=== PATIENT | male | born 1950 | race Caucasian/White ===

== ENCOUNTER 2019-11-22 13:32 | Emergency (ER) | payer MEDICARE ==
[~2019-11-22] VITALS: Ht 175.3 cm; Wt 70.0 kg
[~2019-11-22 13:32] MED LIST: LEVO250T23 PO
--- NOTE | 2019-11-22 14:00 | NUR ---
Pt brought in by marlo from [facility] after found with lacertation to forehead, & bilat arms. PT reports EOTH.
[2019-11-22] MEDS ORDERED: NEOSPORIN OINT. PKT 1 PACKET ONE (14:41)
--- NOTE | 2019-11-22 15:13 | NUR ---
COLLAR BASTER AT BEDSIDE FOR WOUND CARE.
--- NOTE | 2019-11-22 15:35 | NUR ---
PT TO IMAGING
--- NOTE | 2019-11-22 16:03 | NUR ---
PT BACK FROM IMAGING, RESTING IN BED.
[2019-11-22] MEDS ORDERED: LIDOCAINE 1%, 10ML INFIL ONE (16:30)
[2019-11-22] MEDS ORDERED: LIDOCAINE-MPF 1%, 5ML ONE (16:38)
--- NOTE | 2019-11-22 16:39 | NUR ---
RANGEL Veloz at bedside for suture placement
[2019-11-22 17:31] VITALS: BP 160/75
--- NOTE | 2019-11-22 17:32 | NUR ---
POC AND DISCHARGE INSTRUCTIONS REVIEWED
== END 2019-11-22 18:00 | disposition home or self-care (01) ==
LOC: ED 17:19
DX: S01.81XA Laceration without foreign body of other part of head, initial encounter (principal); S80.212A Abrasion, left knee, initial encounter; S80.211A Abrasion, right knee, initial encounter; S50.312A Abrasion of left elbow, initial encounter; S50.311A Abrasion of right elbow, initial encounter; S09.90XA Unspecified injury of head, initial encounter; F10.120 Alcohol abuse with intoxication, uncomplicated; Y04.0XXA Assault by unarmed brawl or fight, initial encounter; Y93.89 Activity, other specified; Y92.410 Unspecified street and highway as the place of occurrence of the external cause; Y99.8 Other external cause status; Y90.9 Presence of alcohol in blood, level not specified
CPT/HCPCS: 12013; 70450; 72110; 72125; 99285

== ENCOUNTER 2019-12-02 12:14 | Emergency (ER) | payer MEDICARE ==
[~2019-12-02] VITALS: Ht 175.3 cm; Wt 63.6 kg
[2019-12-02 12:22] VITALS: BP 148/85
--- NOTE | 2019-12-02 13:03 | NUR ---
Patient/Caregiver given discharge instructions and they have confirmed that they understand the instructions. Patient ambulatory with steady gait.
== END 2019-12-02 13:04 | disposition home or self-care (01) ==
LOC: ED 12:50
DX: S01.81XD Laceration without foreign body of other part of head, subsequent encounter (principal); X58.XXXD Exposure to other specified factors, subsequent encounter
CPT/HCPCS: 99283

== ENCOUNTER 2020-04-08 17:01 | Inpatient (IN) | payer MEDICARE ==
[~2020-04-08] VITALS: Ht 175.3 cm; Wt 64.4 kg
[2020-04-08] MEDS ORDERED: ASPIRIN 81 MG TABLET CHEW PO ONE (17:30)
[2020-04-08 17:54] LABS: ALANINE AMINOTRANSFERASE 50 U/L (12-78); ALBUMIN 3.4 g/dL (3.4-5.0); ANION GAP 6 mmol/L (5-15); CALCIUM 8.3 mg/dL (8.5-10.1); CHLORIDE 106 mmol/L (98-107)
[2020-04-08 17:58] LABS: ALKALINE PHOSPHATASE 52 U/L (45-117); BILIRUBIN,TOTAL 0.8 mg/dL (0.2-1.0); TOTAL PROTEIN 7.4 g/dL (6.4-8.2); TROPONIN I < 0.015 ng/mL (0.000-0.045)
[2020-04-08] MEDS ORDERED: ACETAMINOPHEN 500 MG TABLET PO ONE (18:00)
--- NOTE | 2020-04-08 18:55 | NUR ---
BREAK RN: PT AT CT
[2020-04-08 19:29] LABS: MEAN CORPUSCULAR HEMOGLOBIN 31.3 pg (27.5-34.5); MEAN PLATELET VOLUME 7.4 fL (7.4-10.4); RED BLOOD COUNT 3.28 x10^6/uL (4.38-5.82); RED CELL DISTRIBUTION WIDTH 14.9 % (9.4-14.8)
[2020-04-08 19:30] LABS: MD YES; PLATELET COUNT 57 x10^3/uL (130-400)
[2020-04-08] MEDS ORDERED: ACETAMINOPHEN 500 MG TABLET ONE ×2 (19:34→20:00)
[2020-04-08] MEDS ORDERED: ASPIRIN 81 MG TABLET CHEW ONE (20:01)
[2020-04-08 20:15] LABS: BAND#(MANUAL) 0.21 x10^3/uL; BANDS%(MANUAL) 8 % (0-7); EOS#(MANUAL) 0.03 x10^3/uL (0.0-0.4); EOS% (MANUAL) 1 % (1-7); LYMPH#(MANUAL) 0.57 x10^3/uL (1-3.4); LYMPHS% (MANUAL) 22 % (22-44); MONOS#(MANUAL) 0.18 x10^3/uL (0.3-2.7); MONOS% (MANUAL) 7 % (2-9); SEG#(MANUAL) 1.61 x10^3/uL (1.8-6.8); SEGS% (MANUAL) 62 % (42-75)
[2020-04-08 20:16] LABS: <RBC MORPHOLOGY> NORMAL
[2020-04-08 20:19] LABS: <PLATELET ESTIMATE> DECREASED; <PLT MORPHOLOGY> NORMAL PLT MORPH
--- NOTE | 2020-04-08 20:55 | NUR ---
PT UP FOR ROADTEST, PT ABLE TO WALK WITHOUT ASSISTANCE HOWEVER PT REPORTS HE IS NOT ON HIS NORMAL STEADY GAIT, PT NOTED TO WOBBLE WHILE WALKING. VSS.
[2020-04-08] MEDS ORDERED: OMNIPAQUE 350 MG/ML, 75ML BOTTLE ONE (22:30)
--- NOTE | 2020-04-08 22:54 | NUR ---
REPORT TO JOSSELYN BETH.
[2020-04-08] MEDS ORDERED: CEFTRIAXONE PMX 1GM/50ML 50 ML IVPB ONE (23:00)
[2020-04-08] MEDS ORDERED: SODIUM CHLORIDE FLUSH 10ML SYR IVF PRN (23:00)
[2020-04-08] MEDS ORDERED: SODIUM CHLORIDE FLUSH 10ML SYR IVF ONE (23:00)
[2020-04-08] MEDS ORDERED: AZITHROMYCIN 500 MG in SODIUM CHLORIDE 0.9% 250 ML IVPB ONE (23:00)
[2020-04-08] MEDS ORDERED: CEFTRIAXONE PMX 1GM/50ML 50 ML ONE (23:32)
--- NOTE | 2020-04-09 00:45 | NUR ---
PT SLEEPING IN BED, PT ON MONITOR, PT VSS, PT MEDICATED PER EMAR
--- NOTE | 2020-04-09 01:56 | NUR ---
PT RESTING IN BED, PT ON MONITOR, PT VSS, PT MEDICATED PER EMAR
[2020-04-09] MEDS ORDERED: PHARMACY MAY ADJ FOR RENAL FX MC PRN (03:00)
[2020-04-09] MEDS ORDERED: ACETAMINOPHEN 325 MG TABLET PO PRN (03:00)
--- NOTE | 2020-04-09 03:43 | NUR ---
REPORT TO PAIGE
[2020-04-09 05:02] VITALS: BP 183/87
[2020-04-09] MEDS ORDERED: DEXAMETHASONE 1 MG TABLET PO SCH (07:30)
[2020-04-09] MEDS ORDERED: DEXAMETHASONE 4 MG TABLET ONE (08:28)
[2020-04-09] MEDS: ASCORBIC ACID 500 MG TABLET PO SCH ×2 (08:34→20:51)
[2020-04-09] MEDS: ZINC SULFATE 220 MG CAPSULE PO SCH (08:34)
[2020-04-09 08:57] LABS: D-DIMER 0.79 ug/mlFEU (0.00-0.52); INTERNATIONAL NORMALIZED RATIO 1.05 (0.93-1.1); PROTHROMBIN TIME 11.1 Seconds (9.6-11.5)
[2020-04-09 08:58] LABS: CALCIUM 8.1 mg/dL (8.5-10.1); CHLORIDE 108 mmol/L (98-107)
[2020-04-09 09:00] VITALS: BP 191/88
[2020-04-09 09:08] LABS: ALANINE AMINOTRANSFERASE 43 U/L (12-78); ALKALINE PHOSPHATASE 51 U/L (45-117); ANION GAP 3 mmol/L (5-15); BILIRUBIN,TOTAL 0.8 mg/dL (0.2-1.0); C-REACTIVE PROTEIN, QUANT 1.71 mg/dL (0.02-0.49); CREATINE KINASE, TOTAL 196 U/L (39-308); CREATININE 1.55 mg/dL (0.7-1.3); MEAN CORPUSCULAR HEMOGLOBIN 31.2 pg (27.5-34.5); MEAN CORPUSCULAR HGB CONC 33.8 g/dL (33.2-36.2); MEAN PLATELET VOLUME 7.6 fL (7.4-10.4); PLATELET COUNT 79 x10^3/uL (130-400); RED BLOOD COUNT 3.42 x10^6/uL (4.38-5.82); RED CELL DISTRIBUTION WIDTH 15.2 % (9.4-14.8); TOTAL PROTEIN 6.9 g/dL (6.4-8.2)
[2020-04-09 10:08] LABS: MD YES
[2020-04-09 10:22] LABS: <PLATELET ESTIMATE> DECREASED; <PLT MORPHOLOGY> NORMAL PLT MORPH; <RBC MORPHOLOGY> NORMAL; BAND#(MANUAL) 0.23 x10^3/uL; BANDS%(MANUAL) 12 % (0-7); BASOS#(MANUAL) 0.02 x10^3/uL (0-0.1); BASOS% (MANUAL) 1 % (0-1); LYMPH#(MANUAL) 0.49 x10^3/uL (1-3.4); LYMPHS% (MANUAL) 26 % (22-44); MONOS#(MANUAL) 0.15 x10^3/uL (0.3-2.7); MONOS% (MANUAL) 8 % (2-9); SEG#(MANUAL) 1.01 x10^3/uL (1.8-6.8); SEGS% (MANUAL) 53 % (42-75)
[2020-04-09] MEDS ORDERED: THIAMINE 200 MG in SODIUM CHLORIDE 0.9% 50 ML IV ONE (10:30)
[2020-04-09] MEDS: AMLODIPINE 5 MG TABLET PO SCH (10:30)
[2020-04-09] MEDS ORDERED: ENALAPRILAT 1.25 MG/ML, 2ML IV PRN (10:30)
[2020-04-09 12:28] VITALS: BP 185/88
[2020-04-09] MEDS: CHOLECALCIFEROL (VITAMIN D3) 5000 IU CAP PO SCH (14:01)
[2020-04-09 14:02] VITALS: BP 157/82
[2020-04-09 18:45] VITALS: BP 172/78
[2020-04-09 20:34] VITALS: BP 157/77
[2020-04-09] MEDS: THIAMINE 100MG TABLET PO SCH (20:51)
[2020-04-09] MEDS: AZITHROMYCIN 500 MG in SODIUM CHLORIDE 0.9% 250 ML IV SCH (23:00)
[2020-04-09] MEDS: CEFTRIAXONE PMX 2GM/50ML 50 ML IVPB SCH (23:45)
[2020-04-10 01:50] VITALS: BP 163/81
[2020-04-10 05:34] LABS: BASOPHILS % (AUTO) 1 % (0-1); EOSINOPHILS % (AUTO) 0 % (1-7); LYMPHOCYTES % (AUTO) 24 % (22-44); MEAN CORPUSCULAR HEMOGLOBIN 32.3 pg (27.5-34.5); MEAN CORPUSCULAR HGB CONC 35.3 g/dL (33.2-36.2); MEAN PLATELET VOLUME 7.4 fL (7.4-10.4); MONOCYTES % (AUTO) 7 % (2-9); NEUTROPHILS % (AUTO) 68 % (42-75); PLATELET COUNT 114 x10^3/uL (130-400); RED BLOOD COUNT 3.23 x10^6/uL (4.38-5.82)
[2020-04-10 05:45] LABS: ALANINE AMINOTRANSFERASE 33 U/L (12-78); ALBUMIN 2.8 g/dL (3.4-5.0); ANION GAP 6 mmol/L (5-15); CALCIUM 8.2 mg/dL (8.5-10.1); CHLORIDE 111 mmol/L (98-107)
[2020-04-10 05:56] LABS: ALKALINE PHOSPHATASE 43 U/L (45-117); BILIRUBIN,TOTAL 0.4 mg/dL (0.2-1.0); CREATINE KINASE, TOTAL 130 U/L (39-308); TOTAL PROTEIN 6.7 g/dL (6.4-8.2)
[2020-04-10 06:09] LABS: MD SCAN
[2020-04-10 08:14] VITALS: BP 176/87
[2020-04-10] MEDS: CHOLECALCIFEROL (VITAMIN D3) 5000 IU CAP PO SCH (09:00)
[2020-04-10] MEDS: HEPARIN 5,000 UNITS/ML, 1ML SQ SCH ×2 (09:37→16:20)
[2020-04-10] MEDS: THIAMINE 100MG TABLET PO SCH ×2 (09:38→20:45)
[2020-04-10] MEDS: ASCORBIC ACID 500 MG TABLET PO SCH ×2 (09:38→20:45)
[2020-04-10] MEDS: ZINC SULFATE 220 MG CAPSULE PO SCH (09:38)
[2020-04-10] MEDS: AMLODIPINE 5 MG TABLET PO SCH ×2 (09:38→20:45)
[2020-04-10 12:54] VITALS: BP 181/87
[2020-04-10 18:50] VITALS: BP 189/92
[2020-04-10 20:46] VITALS: BP 172/83
[2020-04-10] MEDS ORDERED: BENZONATATE 100 MG CAPSULE PO PRN (23:00)
[2020-04-10] MEDS: AZITHROMYCIN 500 MG in SODIUM CHLORIDE 0.9% 250 ML IV SCH (23:06)
[2020-04-11] MEDS: CEFTRIAXONE PMX 2GM/50ML 50 ML IVPB SCH (00:21)
[2020-04-11] MEDS: HEPARIN 5,000 UNITS/ML, 1ML SQ SCH ×3 (00:22→16:00)
[2020-04-11 00:33] VITALS: BP 184/89
[2020-04-11 05:55] LABS: BASOPHILS % (AUTO) 1 % (0-1); EOSINOPHILS % (AUTO) 0 % (1-7); LYMPHOCYTES % (AUTO) 38 % (22-44); MEAN CORPUSCULAR HEMOGLOBIN 31.5 pg (27.5-34.5); MEAN CORPUSCULAR HGB CONC 34.2 g/dL (33.2-36.2); MEAN PLATELET VOLUME 8.2 fL (7.4-10.4); MONOCYTES % (AUTO) 8 % (2-9); NEUTROPHILS % (AUTO) 53 % (42-75); PLATELET COUNT 83 x10^3/uL (130-400); RED BLOOD COUNT 3.41 x10^6/uL (4.38-5.82); RED CELL DISTRIBUTION WIDTH 15.1 % (9.4-14.8)
[2020-04-11 06:04] LABS: D-DIMER 0.77 ug/mlFEU (0.00-0.52); INTERNATIONAL NORMALIZED RATIO 1.03 (0.93-1.1); PROTHROMBIN TIME 10.9 Seconds (9.6-11.5)
[2020-04-11 06:06] LABS: CHLORIDE 106 mmol/L (98-107)
[2020-04-11 06:21] LABS: MD NO
[2020-04-11 06:22] LABS: ALANINE AMINOTRANSFERASE 34 U/L (12-78); ALBUMIN 2.9 g/dL (3.4-5.0); ALKALINE PHOSPHATASE 46 U/L (45-117); ANION GAP 7 mmol/L (5-15); BILIRUBIN,TOTAL 0.4 mg/dL (0.2-1.0); CALCIUM 8.2 mg/dL (8.5-10.1); CREATINE KINASE, TOTAL 90 U/L (39-308)
[2020-04-11] MEDS: ZINC SULFATE 220 MG CAPSULE PO SCH (08:43)
[2020-04-11] MEDS: THIAMINE 100MG TABLET PO SCH ×2 (08:43→21:14)
[2020-04-11] MEDS: AMLODIPINE 5 MG TABLET PO SCH ×2 (08:44→21:14)
[2020-04-11] MEDS: ASCORBIC ACID 500 MG TABLET PO SCH ×2 (08:44→21:14)
[2020-04-11] MEDS: CHOLECALCIFEROL (VITAMIN D3) 5000 IU CAP PO SCH (08:46)
[2020-04-11 09:23] VITALS: BP 185/92
[2020-04-11] MEDS ORDERED: AZIT500T10 PO (10:40)
[2020-04-11] MEDS ORDERED: THIA100T67 PO (10:40)
[2020-04-11] MEDS ORDERED: ASCO500T9 PO (10:40)
[2020-04-11] MEDS ORDERED: CHOL500051 PO (10:40)
[2020-04-11] MEDS ORDERED: ZINC220C7 PO (10:40)
[2020-04-11] MEDS ORDERED: CEFD300C37 PO (10:40)
[2020-04-11] MEDS ORDERED: AMLO-150 PO (13:27)
[2020-04-11 17:05] VITALS: BP 182/80
[2020-04-11 18:30] VITALS: BP 194/106
[2020-04-11] MEDS: AZITHROMYCIN 500 MG in SODIUM CHLORIDE 0.9% 250 ML IV SCH (23:04)
[2020-04-12] MEDS: CEFTRIAXONE PMX 2GM/50ML 50 ML IVPB SCH (00:20)
[2020-04-12] MEDS: HEPARIN 5,000 UNITS/ML, 1ML SQ SCH ×3 (00:20→15:18)
[2020-04-12 00:29] VITALS: BP 170/88
[2020-04-12 05:31] LABS: BASOPHILS % (AUTO) 1 % (0-1); EOSINOPHILS % (AUTO) 0 % (1-7); LYMPHOCYTES % (AUTO) 36 % (22-44); MEAN CORPUSCULAR HEMOGLOBIN 31.7 pg (27.5-34.5); MEAN CORPUSCULAR HGB CONC 34.8 g/dL (33.2-36.2); MEAN PLATELET VOLUME 6.6 fL (7.4-10.4); MONOCYTES % (AUTO) 20 % (2-9); NEUTROPHILS % (AUTO) 42 % (42-75); PLATELET COUNT 112 x10^3/uL (130-400); RED CELL DISTRIBUTION WIDTH 15.1 % (9.4-14.8)
[2020-04-12 05:40] LABS: ALBUMIN 2.9 g/dL (3.4-5.0); ANION GAP 9 mmol/L (5-15); CALCIUM 7.9 mg/dL (8.5-10.1); CHLORIDE 105 mmol/L (98-107)
[2020-04-12 05:48] LABS: MD NO
[2020-04-12 05:50] LABS: ALANINE AMINOTRANSFERASE 34 U/L (12-78); ALKALINE PHOSPHATASE 43 U/L (45-117); BILIRUBIN,TOTAL 0.5 mg/dL (0.2-1.0); C-REACTIVE PROTEIN, QUANT 1.38 mg/dL (0.02-0.49); CREATINE KINASE, TOTAL 68 U/L (39-308); CREATININE 1.46 mg/dL (0.7-1.3); TOTAL PROTEIN 6.6 g/dL (6.4-8.2)
[2020-04-12 07:51] VITALS: BP 150/81
[2020-04-12] MEDS: ZINC SULFATE 220 MG CAPSULE PO SCH (09:55)
[2020-04-12] MEDS: AMLODIPINE 5 MG TABLET PO SCH (09:55)
[2020-04-12] MEDS: ASCORBIC ACID 500 MG TABLET PO SCH (09:55)
[2020-04-12] MEDS: THIAMINE 100MG TABLET PO SCH (09:55)
[2020-04-12] MEDS: CHOLECALCIFEROL (VITAMIN D3) 5000 IU CAP PO SCH (09:56)
[2020-04-12 14:08] VITALS: BP 166/81
== END 2020-04-12 16:50 | disposition home or self-care (01) | DRG 177 ==
LOC: ED 21:19 → EDIP 22:45 → 3N 04-09 05:06
PROVIDERS: ADMIT Family Medicine; ATTEND Internal Medicine
DX: U07.1 COVID-19 (principal); J12.89 Other viral pneumonia; D61.818 Other pancytopenia; F17.200 Nicotine dependence, unspecified, uncomplicated; F10.20 Alcohol dependence, uncomplicated; I16.0 Hypertensive urgency; I72.2 Aneurysm of renal artery; N18.30 Chronic kidney disease, stage 3 unspecified; R09.02 Hypoxemia; Z86.73 Personal history of transient ischemic attack (TIA), and cerebral infarction without residual deficits; Z59.0 Homelessness; S00.93XA Contusion of unspecified part of head, initial encounter; W18.39XA Other fall on same level, initial encounter; Y93.89 Activity, other specified; Y92.89 Other specified places as the place of occurrence of the external cause; Y99.8 Other external cause status
CPT/HCPCS: 36415; 70450; 71045; 71260; 80053; 82550; 82728; 83605; 84484; 85025; 85379; 85384; 85610; 85730; 86140; 87040; 93005; 96365; 96368; 99285; G0378; J0456; J0696; J1644; J3411; Q9967; J7050

== ENCOUNTER 2020-07-09 08:57 | Emergency (ER) | payer MEDICARE ==
[~2020-07-09] VITALS: Ht 174 cm; Wt 68.0 kg
[~2020-07-09 08:57] MED LIST changes: +AMLO-150 PO; +ASCO500T9 PO; +AZIT500T10 PO; +CEFD300C37 PO; +CHOL500051 PO; +THIA100T67 PO; +ZINC220C7 PO
--- NOTE | 2020-07-09 09:00 | NUR ---
LATE ENTRY DUE TO PATIENT CARE: PATIENT BIB [facility] WITH CHIEF C/O EPISTAXIS. PER PATIENT NOSE STARTED BLEEDING YESTERDAY EVENING. BLEEDING WAS CONTINOUS THEN STOPPED PER PATIENT, BUT STARTED AGAIN THIS MORNING AND HAS NOT STOPPED. PATIENT DENIES TRAUMA, PATIENT DOES NOT TAKE BLOOD THINNERS. BLEEDING CONTROLLED WITH NOSE CLIP, NADN, PATIENT HYPERTENSIVE OTHER VITAL SIGNS STABLE.
--- NOTE | 2020-07-09 10:03 | NUR ---
PATIENT RESTING IN GURNEY, WATCHING TV, NADN, CALL LIGHT WITHIN REACH. WAITING FOR PROVIDER TO EVALUATE.
--- NOTE | 2020-07-09 10:15 | NUR ---
ERMD AT BEDSIDE FOR EVALUATION.
[2020-07-09] MEDS ORDERED: METOPROLOL TARTRATE 50 MG TAB ONE (10:20)
[2020-07-09] MEDS ORDERED: METOPROLOL TARTRATE 50 MG TAB PO ONE (10:30)
[2020-07-09 10:46] VITALS: BP 180/95
--- NOTE | 2020-07-09 11:29 | NUR ---
Patient given discharge instructions and prescription and they have confirmed that they understand the instructions. Bus pass provided to patient, all patient belongings gathered and taken with patient. Patient stable and ambulatory with steady gait from ED.
== END 2020-07-09 11:30 | disposition home or self-care (01) ==
LOC: ED 11:25
DX: R04.0 Epistaxis (principal); I10 Essential (primary) hypertension; F17.200 Nicotine dependence, unspecified, uncomplicated
CPT/HCPCS: 99283

== ENCOUNTER 2020-08-23 17:29 | Emergency (ER) | payer MEDICARE ==
[~2020-08-23] VITALS: Ht 175.3 cm; Wt 67.2 kg
[2020-08-23 17:35] VITALS: BP 191/97
[2020-08-23] MEDS ORDERED: hydrOXyzine 50MG TABLET ONE (18:23)
--- NOTE | 2020-08-23 18:29 | NUR ---
Patient given discharge instructions and they have confirmed that they understand the instructions. Patient ambulatory with steady gait.
== END 2020-08-23 18:30 | disposition home or self-care (01) ==
LOC: ED 18:24
DX: B86 Scabies (principal); I10 Essential (primary) hypertension
CPT/HCPCS: 99283; Q0177